=== PATIENT | female | born 1945 | race Asian ===

== ENCOUNTER 2018-02-03 17:11 | Emergency (ER) | payer OTHER, SELFPAY ==
[2018-02-03 17:15] VITALS: BP 163/69; PULSE 76; RESP 20; TEMP 36.4; O2SAT 97; BMI 23.0
--- NOTE | 2018-02-03 17:25 | DI.CT.S_ITS ---
PROCEDURE: CT HEAD/BRAIN WO CON INDICATIONS: TPA CANDIDATE, confusion TECHNIQUE: Noncontrast 4.5 mm thick angled axial sections acquired from the foramen magnum to the vertex, with coronal and sagittal reformats. For radiation dose reduction, the following was used: automated exposure control, adjustment of mA and/or kV according to patient size. COMPARISON: [facility], CT, HEAD WITHOUT CONTRAST, 12/01/2014, 11:12. FINDINGS: Image quality: Excellent. CSF spaces: Basal cisterns are patent. No extra-axial fluid collections. The ventricles are symmetric in size and shape. Brain: No intracranial bleeds or masses. There is cerebral volume loss for age, with resultant ventricular and sulcal prominence. There are periventricular and deep white matter chronic small vessel ischemic changes. There is intracranial internal carotid artery atherosclerosis. Skull and face: Calvarium and visualized facial bones appear intact, without suspicious lesions. Sinuses: Visualized sinuses and mastoids are clear. IMPRESSION: Source of current symptoms is not seen. Dictated by: Fermín Garcia M.D. on 02/03/2018 at 17:35 Approved by: Fermín Gacria M.D. on 02/03/2018 at 17:35
--- NOTE | 2018-02-03 17:26 | DI.RAD.S_ITS ---
PROCEDURE: XR CHEST 1V INDICATIONS: confusion TECHNIQUE: One view of the chest was acquired. COMPARISON: None. FINDINGS: Surgical changes and devices: None. Lungs and pleura: No pleural effusions or pneumothorax. Lungs are clear. Mediastinum: Mediastinal contours appear normal. Heart size is normal. Bones and chest wall: No suspicious bony lesions. Overlying soft tissues appear unremarkable. IMPRESSION: Source of confusion is not seen. No pneumonia found. Dictated by: Fermín Garcia M.D. on 02/03/2018 at 17:35 Approved by: Fermín Garcia M.D. on 02/03/2018 at 17:35
[2018-02-03 17:51] LABS: Add Manual Diff / Slide Review NO; Basophils Percent Auto 0.7 % (0-2); Eosinophils Percent Auto 1.2 % (2-4); Hematocrit 43.3 % (36-46); Hemoglobin 14.8 g/dL (12.0-16.0); Lymphocytes Percent Auto 29.6 % (25-40); Mean Corpuscular HGB Conc 34.3 % (30-36); Mean Corpuscular Hemoglobin 31.8 PG (26-34); Mean Corpuscular Volume 92.8 fL (80-100); Monocytes Percent Auto 5.3 % (3-14); Neutrophils Absolute Auto 4200 /uL (3000-5900); Neutrophils Percent Auto 63.2 % (50-75); Platelet Count 261 X10^3/uL (150-400); Red Blood Cell Count 4.66 X10^6/uL (4.0-5.2); Red Cell Distribution Width 13.9 % (11.6-14.8); White Blood Cell Count 6.6 X10^3/uL (4.5-11.0)
[2018-02-03 18:01] LABS: BUN Creatinine Ratio 28.3 (6-22); Blood Urea Nitrogen 17 mg/dL (7-17); Calcium 9.2 mg/dL (8.4-10.2); Carbon Dioxide 28 mmol/L (22-32); Chloride 105 mmol/L (98-107); Estimated Glomerular Filt Rate > 60.0 mL/min (>60); Ethanol (ETOH) < 10 mg/dL; Glucose 109 mg/dL (80-110); HEMOLYSIS 23 (0-50); Potassium 3.6 mmol/L (3.4-5.1); Sodium 142 mmol/L (137-145)
--- NOTE | 2018-02-03 18:15 | ED.NEUROSD ---
HPI - Neuro Symptoms/Deficit General Chief Complaint: Neuro Symptoms/Deficit Stated Complaint: MEMORY ISSUES, WORRIED ABOUT STROKE Time Seen by Provider: 02/03/18 17:25 Source: patient Mode of arrival: ambulatory Limitations: no limitations History of Present Illness HPI Narrative: Patient is a 72-year-old female who presents with trouble remembering. Her states that her best friend is leaving the [facility]. Today she had quite intense conversation on the phone. Since then she has had repetitive questioning difficulty remembering the last 24 hr. She has no focal deficits no slurring of speech. She is able to follow commands. No trauma. Patient denies any pain and unsure why she is here. found her at 4:00 p.m. with these symptoms. On Anticoagulants: No Related Data Home Medications Medication Instructions Recorded Confirmed 5htp 1 cap PO DAILY 02/03/18 02/03/18 High Potency Multivitamin 1 tab PO DAILY 02/03/18 02/03/18 aspirin 81 mg PO BEDTIME 02/03/18 02/03/18 cholecalciferol (vitamin D3) 4,000 unit PO DAILY 02/03/18 02/03/18 [Vitamin D3] coenzyme Q10 [Co Q-10] 300 mg PO DAILY 02/03/18 02/03/18 cranberry 1 cap PO DAILY 02/03/18 02/03/18 ginkgo biloba 1 cap PO DAILY 02/03/18 02/03/18 lysine 2,000 mg PO DAILY 02/03/18 02/03/18 melatonin 20 mg PO BEDTIME 02/03/18 02/03/18 omega 6-agk-cpj-fish oil [Fish Oil] 1,000 mg PO DAILY 02/03/18 02/03/18 red yeast rice 2 cap PO DAILY 02/03/18 02/03/18 riboflavin (vitamin B2) 50 mg PO DAILY 02/03/18 02/03/18 trazodone 50 mg PO BEDTIME 02/03/18 02/03/18 turmeric root extract 1 tab PO DAILY 02/03/18 02/03/18 vitamin E 400 unit PO DAILY 02/03/18 02/03/18 Allergies Allergy/AdvReac Type Severity Reaction Status Date / Time Sulfa (Sulfonamide Allergy Unknown Verified 02/03/18 17:53 Antibiotics) amoxicillin [AMOXICILLIN] AdvReac Mild rash Verified 02/03/18 17:53 clarithromycin AdvReac Mild rash Verified 02/03/18 17:53 [CLARITHROMYCIN] Review of Systems Review of Systems All systems reviewed & are unremarkable except as noted in HPI and below Constitutional Denies chills, Denies fever(s), Denies lethargy and Denies weakness Cardiovascular Denies chest pain, Denies irregular heart rhythm, Denies lightheadedness, Denies palpitations, Denies dyspnea, Denies dyspnea on exertion and Denies orthopnea Respiratory Denies cough, Denies dyspnea, Denies dyspnea on exertion and Denies wheezing Gastrointestinal Gastrointestinal: Denies abdominal pain, Denies change in bowel habits, Denies diarrhea, Denies nausea and Denies vomiting Musculoskeletal Denies back pain, Denies muscle weakness, Denies numbness and Denies tingling Integumentary/Breasts Denies pruritus, Denies erythema, Denies rash and Denies wounds Neurologic Reports as per HPI, Denies numbness, Denies tingling and Denies weakness Endocrine Denies palpitations Allergic/Immunologic Denies wheezing [facility] Medical History Healthy adult (Acute) Social History Smoking Status: Never smoker Exam Initial Vital Signs Initial Vital Signs: Vital Signs Temperature 97.6 F 02/03/18 17:15 Pulse Rate 76 02/03/18 17:15 Respiratory Rate 20 02/03/18 17:15 Blood Pressure 163/69 H 02/03/18 17:15 Pulse Oximetry 97 02/03/18 17:15 Const General: cooperative, healthy appearing and comfortable [facility] Head: normal to inspection, normocephalic and atraumatic Eyes General: appearance normal, both eyes and all related structures Pupils: PERRL EOM: EOM intact bilaterally Neck Neck: normal visual inspection and full ROM Chest Chest: normal inspection of the chest Resp Effort & Inspection: normal respiratory effort, able to speak in complete sentences, no respiratory distress and no use of accessory muscles Auscultation: clear to auscultation bilaterally, no rales, no rhonchi and no wheezes Cardio Rate: regular rate Rhythm: regular rhythm Heart Sounds: no click, no gallops, no murmurs and no rubs Pulses: normal peripheral pulses GI Inspection: non-distended Palpation: soft, no hepatosplenomegaly, No guarding, No pulsatile mass and No tender Auscultation: normal bowel sounds Skin General: no rashes or lesions noted and elasticity normal Wounds: no wounds Neuro General: alert, awake, oriented x3, no meningeal signs and CN's II-XI intact bilaterally Cranial Nerves: tongue midline Cognition: normal cognition (Can't remember what happened today, but otherwise normal) Speech: speech normal Gait: normal gait Motor: muscle tone normal throughout Sensory Exam: no sensory deficits noted Extrem General: normal to inspection, full ROM and capillary refill normal Scores NIH Stroke Scale Level of Conciousness: Alert, keenly responsive Ask month/age: Answers both questions correctly. Open/close eyes, close hand: Performs both tasks correctly Best gaze horizontal: Normal Visual rivera: No visual loss Facial palsy: Normal symetrical movement Left arm drift: No drift for full 10 sec Right arm drift: No drift for full 10 sec Left leg drift: No drift for full 10 sec Right leg drift: No drift for full 10 sec Limb ataxia: Absent Sensory on face/arms/legs: Normal, no sensory loss Best language: No aphasia, normal Dysarthria: Normal Extinction or inattention: No abnormality Total NIH Stroke scale score: 0 Course Orders Ordered: ED Orders 02/03/18 17:25 CT head/brain wo con Stat 02/03/18 17:26 XR chest 1V Stat 02/03/18 17:42 Basic Metabolic Panel Stat Complete Blood Count AUTO DIFF Stat Ethanol (ETOH) Stat Troponin I Stat 02/03/18 18:35 MR stroke Stat Vital Signs - 8 hr 02/03/18 18:42 Pulse Rate 73 Respiratory Rate 25 H Blood Pressure [Left Arm] 151/72 H Pulse Oximetry 98 MDM - Neuro Symptoms/Deficit Medical Records Attestation: I reviewed the patient's medical records. Lab Data Attestation: I reviewed the patient's lab results. Result diagrams: 02/03/18 17:42 02/03/18 17:42 Lab Results 02/03/18 02/03/18 Range/Units 17:42 17:42 WBC 6.6 (4.5-11.0) X10^3/uL RBC 4.66 (4.0-5.2) X10^6/uL Hgb 14.8 (12.0-16.0) g/dL Hct 43.3 (36-46) % MCV 92.8 (80-100) fL MCH 31.8 (26-34) PG MCHC 34.3 (30-36) % RDW 13.9 (11.6-14.8) % Plt Count 261 (150-400) X10^3/uL Neut % (Auto) 63.2 (50-75) % Lymph % (Auto) 29.6 (25-40) % [place] % (Auto) 5.3 (3-14) % Eos % (Auto) 1.2 L (2-4) % Baso % (Auto) 0.7 (0-2) % Neut # (Auto) 4200 (8802-0906) /uL Sodium 142 (137-145) mmol/L Potassium 3.6 (3.4-5.1) mmol/L Chloride 105 (98-107) mmol/L Carbon Dioxide 28 (22-32) mmol/L BUN 17 (7-17) mg/dL Creatinine 0.60 (0.52-1.04) mg/dL Estimated GFR > 60.0 (>60) mL/min BUN/Creatinine Ratio 28.3 H (6-22) Glucose 109 (80-110) mg/dL Calcium 9.2 (8.4-10.2) mg/dL Troponin I < 0.012 (0.01-0.034) ng/mL Ethyl Alcohol < 10 mg/dL Imaging Data CT scan - head: Radiologist's impression: PROCEDURE: CT HEAD/BRAIN WO CON INDICATIONS: TPA CANDIDATE, confusion TECHNIQUE: Noncontrast 4.5 mm thick angled axial sections acquired from the foramen magnum to the vertex, with coronal and sagittal reformats. For radiation dose reduction, the following was used: automated exposure control, adjustment of mA and/or kV according to patient size. COMPARISON: [facility], CT, HEAD WITHOUT CONTRAST, 12/01/2014, 11:12. FINDINGS: Image quality: Excellent. CSF spaces: Basal cisterns are patent. No extra-axial fluid collections. The ventricles are symmetric in size and shape. Brain: No intracranial bleeds or masses. There is cerebral volume loss for age, with resultant ventricular and sulcal prominence. There are periventricular and deep white matter chronic small vessel ischemic changes. There is intracranial internal carotid artery atherosclerosis. Skull and face: Calvarium and visualized facial bones appear intact, without suspicious lesions. Sinuses: Visualized sinuses and mastoids are clear. IMPRESSION: Source of current symptoms is not seen. Dictated by: Fermín Garcia M.D. on 02/03/2018 at 17:35 Chest x-ray: Radiologist's impression: PROCEDURE: XR CHEST 1V INDICATIONS: confusion TECHNIQUE: One view of the chest was acquired. COMPARISON: None. FINDINGS: Surgical changes and devices: None. Lungs and pleura: No pleural effusions or pneumothorax. Lungs are clear. Mediastinum: Mediastinal contours appear normal. Heart size is normal. Bones and chest wall: No suspicious bony lesions. Overlying soft tissues appear unremarkable. IMPRESSION: Source of confusion is not seen. No pneumonia found. Dictated by: Fermín Garcia M.D. on 02/03/2018 at 17:35 ECG Data Attestation: I personally reviewed and interpreted this ECG as follows: Prior ECG tracings: not available for review Interpretation: Normal sinus rhythm rate [address] changes no T-wave inversions no priors to compare MDM Narrative Medical decision making narrative: Patient has no focal deficits. She has repetitive questioning and can't actually remember who is left the [facility]. She has short-term amnesia as well. Patient has signs and symptoms clinically correlate with transient global amnesia. I have discussed at length with the signs and symptoms. He understands. I also recommended an outpatient MRI. MRI not available tonight or this weekend at [facility]. I discussed all findings with the patient and spouse, Education has been performed regarding treatment plan, diagnosis, warning signs and symptoms and all concerns have been addressed. Verbally agree with and understood all of the above. Discharge Plan Departure Patient Disposition: Home, Self-Care Clinical Impression: TGA (transient global amnesia) Discharge Date/Time: 02/03/18 19:27 Interventions: ED Discharge Assessment Last Done: 02/03/18 19:26 Instructions: DI for Transient Global Amnesia Activity Restrictions/Additional Instructions: *You have been diagnosed with transient global amnesia *What to do: This should be temporary. Likely from a traumatic or stressful event -recommend MRI of brain at this can be done with primary care physician *Continue to take medications as directed *Follow up with your primary care provider in 2-3 days *Return to ER if you should have weakness, slurring of speech, difficulty speaking or any new, worsening or concerning symptoms Prescriptions: No Action trazodone 50 mg Tablet 50 mg PO BEDTIME RF: 0 aspirin 81 mg Tablet,Delayed Release (Dr/Ec) 81 mg PO BEDTIME RF: 0 melatonin 10 mg Tablet 20 mg PO BEDTIME RF: 0 5htp 1 cap PO DAILY RF: 0 lysine 1,000 mg Tablet 2,000 mg PO DAILY RF: 0 cranberry 400 mg Capsule 1 cap PO DAILY RF: 0 vitamin E 400 unit Capsule 400 unit PO DAILY RF: 0 riboflavin (vitamin B2) 50 mg Tablet 50 mg PO DAILY RF: 0 coenzyme Q10 [Co Q-10] 300 mg Capsule 300 mg PO DAILY RF: 0 red yeast rice 600 mg Capsule 2 cap PO DAILY RF: 0 omega 4-hfz-urx-fish oil [Fish Oil] 1,000 mg (120 mg-180 mg) Capsule 1,000 mg PO DAILY RF: 0 cholecalciferol (vitamin D3) [Vitamin D3] 4,000 unit Capsule 4,000 unit PO DAILY RF: 0 High Potency Multivitamin 1 tab PO DAILY RF: 0 ginkgo biloba 1 cap PO DAILY RF: 0 turmeric root extract 1 tab PO DAILY RF: 0
[2018-02-03 18:24] LABS: Troponin I < 0.012 ng/mL (0.01-0.034)
--- NOTE | 2018-02-03 18:26 | ED_ITS ---
HPI - Neuro Symptoms/Deficit General Chief Complaint: Neuro Symptoms/Deficit Stated Complaint: MEMORY ISSUES, WORRIED ABOUT STROKE Time Seen by Provider: 02/03/18 17:25 Source: patient Mode of arrival: ambulatory Limitations: no limitations History of Present Illness HPI Narrative: Patient is a 72-year-old female who presents with trouble remembering. Her states that her best friend is leaving the [employer]. Today she had quite intense conversation on the phone. Since then she has had repetitive questioning difficulty remembering the last 24 hr. She has no focal deficits no slurring of speech. She is able to follow commands. No trauma. Patient denies any pain and unsure why she is here. found her at 4:00 p.m. with these symptoms. On Anticoagulants: No Related Data Home Medications Medication Instructions Recorded Confirmed 5htp 1 cap PO DAILY 02/03/18 02/03/18 High Potency Multivitamin 1 tab PO DAILY 02/03/18 02/03/18 aspirin 81 mg PO BEDTIME 02/03/18 02/03/18 cholecalciferol (vitamin D3) 4,000 unit PO DAILY 02/03/18 02/03/18 [Vitamin D3] coenzyme Q10 [Co Q-10] 300 mg PO DAILY 02/03/18 02/03/18 cranberry 1 cap PO DAILY 02/03/18 02/03/18 ginkgo biloba 1 cap PO DAILY 02/03/18 02/03/18 lysine 2,000 mg PO DAILY 02/03/18 02/03/18 melatonin 20 mg PO BEDTIME 02/03/18 02/03/18 omega 0-ozs-lay-fish oil [Fish Oil] 1,000 mg PO DAILY 02/03/18 02/03/18 red yeast rice 2 cap PO DAILY 02/03/18 02/03/18 riboflavin (vitamin B2) 50 mg PO DAILY 02/03/18 02/03/18 trazodone 50 mg PO BEDTIME 02/03/18 02/03/18 turmeric root extract 1 tab PO DAILY 02/03/18 02/03/18 vitamin E 400 unit PO DAILY 02/03/18 02/03/18 Allergies Allergy/AdvReac Type Severity Reaction Status Date / Time Sulfa (Sulfonamide Allergy Unknown Verified 02/03/18 17:53 Antibiotics) amoxicillin [AMOXICILLIN] AdvReac Mild rash Verified 02/03/18 17:53 clarithromycin AdvReac Mild rash Verified 02/03/18 17:53 [CLARITHROMYCIN] Review of Systems Review of Systems All systems reviewed & are unremarkable except as noted in HPI and below Constitutional Denies chills, Denies fever(s), Denies lethargy and Denies weakness Cardiovascular Denies chest pain, Denies irregular heart rhythm, Denies lightheadedness, Denies palpitations, Denies dyspnea, Denies dyspnea on exertion and Denies orthopnea Respiratory Denies cough, Denies dyspnea, Denies dyspnea on exertion and Denies wheezing Gastrointestinal Gastrointestinal: Denies abdominal pain, Denies change in bowel habits, Denies diarrhea, Denies nausea and Denies vomiting Musculoskeletal Denies back pain, Denies muscle weakness, Denies numbness and Denies tingling Integumentary/Breasts Denies pruritus, Denies erythema, Denies rash and Denies wounds Neurologic Reports as per HPI, Denies numbness, Denies tingling and Denies weakness Endocrine Denies palpitations Allergic/Immunologic Denies wheezing [facility] Medical History Healthy adult (Acute) Social History Smoking Status: Never smoker Exam Initial Vital Signs Initial Vital Signs: Vital Signs Temperature 97.6 F 02/03/18 17:15 Pulse Rate 76 02/03/18 17:15 Respiratory Rate 20 02/03/18 17:15 Blood Pressure 163/69 H 02/03/18 17:15 Pulse Oximetry 97 02/03/18 17:15 Const General: cooperative, healthy appearing and comfortable [facility] Head: normal to inspection, normocephalic and atraumatic Eyes General: appearance normal, both eyes and all related structures Pupils: PERRL EOM: EOM intact bilaterally Neck Neck: normal visual inspection and full ROM Chest Chest: normal inspection of the chest Resp Effort & Inspection: normal respiratory effort, able to speak in complete sentences, no respiratory distress and no use of accessory muscles Auscultation: clear to auscultation bilaterally, no rales, no rhonchi and no wheezes Cardio Rate: regular rate Rhythm: regular rhythm Heart Sounds: no click, no gallops, no murmurs and no rubs Pulses: normal peripheral pulses GI Inspection: non-distended Palpation: soft, no hepatosplenomegaly, No guarding, No pulsatile mass and No tender Auscultation: normal bowel sounds Skin General: no rashes or lesions noted and elasticity normal Wounds: no wounds Neuro General: alert, awake, oriented x3, no meningeal signs and CN's II-XI intact bilaterally Cranial Nerves: tongue midline Cognition: normal cognition (Can't remember what happened today, but otherwise normal) Speech: speech normal Gait: normal gait Motor: muscle tone normal throughout Sensory Exam: no sensory deficits noted Extrem General: normal to inspection, full ROM and capillary refill normal Scores NIH Stroke Scale Level of Conciousness: Alert, keenly responsive Ask month/age: Answers both questions correctly. Open/close eyes, close hand: Performs both tasks correctly Best gaze horizontal: Normal Visual rivera: No visual loss Facial palsy: Normal symetrical movement Left arm drift: No drift for full 10 sec Right arm drift: No drift for full 10 sec Left leg drift: No drift for full 10 sec Right leg drift: No drift for full 10 sec Limb ataxia: Absent Sensory on face/arms/legs: Normal, no sensory loss Best language: No aphasia, normal Dysarthria: Normal Extinction or inattention: No abnormality Total NIH Stroke scale score: 0 Course Orders Ordered: ED Orders 02/03/18 17:25 CT head/brain wo con Stat 02/03/18 17:26 XR chest 1V Stat 02/03/18 17:42 Basic Metabolic Panel Stat Complete Blood Count AUTO DIFF Stat Ethanol (ETOH) Stat Troponin I Stat 02/03/18 18:35 MR stroke Stat Vital Signs - 8 hr 02/03/18 18:42 Pulse Rate 73 Respiratory Rate 25 H Blood Pressure [Left Arm] 151/72 H Pulse Oximetry 98 MDM - Neuro Symptoms/Deficit Medical Records Attestation: I reviewed the patient's medical records. Lab Data Attestation: I reviewed the patient's lab results. Result diagrams: 02/03/18 17:42 02/03/18 17:42 Lab Results 02/03/18 02/03/18 Range/Units 17:42 17:42 WBC 6.6 (4.5-11.0) X10^3/uL RBC 4.66 (4.0-5.2) X10^6/uL Hgb 14.8 (12.0-16.0) g/dL Hct 43.3 (36-46) % MCV 92.8 (80-100) fL MCH 31.8 (26-34) PG MCHC 34.3 (30-36) % RDW 13.9 (11.6-14.8) % Plt Count 261 (150-400) X10^3/uL Neut % (Auto) 63.2 (50-75) % Lymph % (Auto) 29.6 (25-40) % [place] % (Auto) 5.3 (3-14) % Eos % (Auto) 1.2 L (2-4) % Baso % (Auto) 0.7 (0-2) % Neut # (Auto) 4200 (4019-6537) /uL Sodium 142 (137-145) mmol/L Potassium 3.6 (3.4-5.1) mmol/L Chloride 105 (98-107) mmol/L Carbon Dioxide 28 (22-32) mmol/L BUN 17 (7-17) mg/dL Creatinine 0.60 (0.52-1.04) mg/dL Estimated GFR > 60.0 (>60) mL/min BUN/Creatinine Ratio 28.3 H (6-22) Glucose 109 (80-110) mg/dL Calcium 9.2 (8.4-10.2) mg/dL Troponin I < 0.012 (0.01-0.034) ng/mL Ethyl Alcohol < 10 mg/dL Imaging Data CT scan - head: Radiologist's impression: PROCEDURE: CT HEAD/BRAIN WO CON INDICATIONS: TPA CANDIDATE, confusion TECHNIQUE: Noncontrast 4.5 mm thick angled axial sections acquired from the foramen magnum to the vertex, with coronal and sagittal reformats. For radiation dose reduction, the following was used: automated exposure control, adjustment of mA and/or kV according to patient size. COMPARISON: [facility], CT, HEAD WITHOUT CONTRAST, 12/01/2014, 11:12. FINDINGS: Image quality: Excellent. CSF spaces: Basal cisterns are patent. No extra-axial fluid collections. The ventricles are symmetric in size and shape. Brain: No intracranial bleeds or masses. There is cerebral volume loss for age , with resultant ventricular and sulcal prominence. There are periventricular and deep white matter chronic small vessel ischemic changes. There is intracranial internal carotid artery atherosclerosis. Skull and face: Calvarium and visualized facial bones appear intact, without suspicious lesions. Sinuses: Visualized sinuses and mastoids are clear. IMPRESSION: Source of current symptoms is not seen. Dictated by: Fermín Garcia M.D. on 02/03/2018 at 17:35 Chest x-ray: Radiologist's impression: PROCEDURE: XR CHEST 1V INDICATIONS: confusion TECHNIQUE: One view of the chest was acquired. COMPARISON: None. FINDINGS: Surgical changes and devices: None. Lungs and pleura: No pleural effusions or pneumothorax. Lungs are clear. Mediastinum: Mediastinal contours appear normal. Heart size is normal. Bones and chest wall: No suspicious bony lesions. Overlying soft tissues appear unremarkable. IMPRESSION: Source of confusion is not seen. No pneumonia found. Dictated by: Fermín Garcia M.D. on 02/03/2018 at 17:35 ECG Data Attestation: I personally reviewed and interpreted this ECG as follows: Prior ECG tracings: not available for review Interpretation: Normal sinus rhythm rate [address] changes no T-wave inversions no priors to compare MDM Narrative Medical decision making narrative: Patient has no focal deficits. She has repetitive questioning and can't actually remember who is left the [facility]. She has short-term amnesia as well. Patient has signs and symptoms clinically correlate with transient global amnesia. I have discussed at length with the signs and symptoms. He understands. I also recommended an outpatient MRI. MRI not available tonight or this weekend at [facility]. I discussed all findings with the patient and spouse, Education has been performed regarding treatment plan, diagnosis, warning signs and symptoms and all concerns have been addressed. Verbally agree with and understood all of the above. Discharge Plan Departure Patient Disposition: Home, Self-Care Clinical Impression: TGA (transient global amnesia) Discharge Date/Time: 02/03/18 19:27 Interventions: ED Discharge Assessment Last Done: 02/03/18 19:26 Instructions: DI for Transient Global Amnesia Activity Restrictions/Additional Instructions: *You have been diagnosed with transient global amnesia *What to do: This should be temporary. Likely from a traumatic or stressful event -recommend MRI of brain at this can be done with primary care physician *Continue to take medications as directed *Follow up with your primary care provider in 2-3 days *Return to ER if you should have weakness, slurring of speech, difficulty speaking or any new, worsening or concerning symptoms Prescriptions: No Action trazodone 50 mg Tablet 50 mg PO BEDTIME RF: 0 aspirin 81 mg Tablet,Delayed Release (Dr/Ec) 81 mg PO BEDTIME RF: 0 melatonin 10 mg Tablet 20 mg PO BEDTIME RF: 0 5htp 1 cap PO DAILY RF: 0 lysine 1,000 mg Tablet 2,000 mg PO DAILY RF: 0 cranberry 400 mg Capsule 1 cap PO DAILY RF: 0 vitamin E 400 unit Capsule 400 unit PO DAILY RF: 0 riboflavin (vitamin B2) 50 mg Tablet 50 mg PO DAILY RF: 0 coenzyme Q10 [Co Q-10] 300 mg Capsule 300 mg PO DAILY RF: 0 red yeast rice 600 mg Capsule 2 cap PO DAILY RF: 0 omega 1-tva-oaf-fish oil [Fish Oil] 1,000 mg (120 mg-180 mg) Capsule 1,000 mg PO DAILY RF: 0 cholecalciferol (vitamin D3) [Vitamin D3] 4,000 unit Capsule 4,000 unit PO DAILY RF: 0 High Potency Multivitamin 1 tab PO DAILY RF: 0 ginkgo biloba 1 cap PO DAILY RF: 0 turmeric root extract 1 tab PO DAILY RF: 0
[2018-02-03 18:42] VITALS: BP 151/72; PULSE 73; RESP 25; O2SAT 98
== END 2018-02-03 19:27 | disposition home or self-care (01) ==
PROVIDERS: Emergency Medicine; Emergency Provider Emergency Medicine; Family Provider Nurse Practitioner Family; PCP Nurse Practitioner Family
DX: G45.4 Transient global amnesia (principal)
CPT/HCPCS: 36591; 70450; 71045; 80048; 80320; 84484; 85025; 99282; 99285; 99291